=== PATIENT | female | born 1990 | race Caucasian/White ===

== ENCOUNTER 2018-10-05 01:12 | Emergency (ER) | payer SELFPAY ==
[~2018-10-05] VITALS: Ht 162.6 cm; Wt 72.7 kg
[2018-10-05] MEDS ORDERED: HYDROCODONE/ACETAMINOPHEN 5/325MG TABLET PO ONE (02:00)
[2018-10-05] MEDS ORDERED: IBUPROFEN 600MG TABLET PO ONE (03:15)
[2018-10-05 04:35] VITALS: BP 105/66
== END 2018-10-05 04:45 | disposition home or self-care (01) ==
LOC: ER 01:12
DX: S13.4XXA Sprain of ligaments of cervical spine, initial encounter (principal); M25.511 Pain in right shoulder; M54.89 Other dorsalgia; V49.59XA Passenger injured in collision with other motor vehicles in traffic accident, initial encounter; Y93.89 Activity, other specified; Y92.410 Unspecified street and highway as the place of occurrence of the external cause
CPT/HCPCS: 72070; 73030; 81025; 99284